=== PATIENT | female | born 1965 | race Caucasian/White ===

== ENCOUNTER 2017-06-11 19:35 | Emergency (ER) | payer MEDICAID ==
--- NOTE | 2017-06-11 21:47 | C.PDOC ---
History Of Present Illness Patient is a 52 y/o female who presents to the ED with complaints of a headache and right-sided facial pain for the last few days. Patient also notes mild right ear discomfort that worsens with bending downward. Denies fever or chills. No other complaints at this time. Time Seen by Provider: 06/11/17 21:46 Chief Complaint (Nursing): Headache History Per: Patient History/Exam Limitations: no limitations Onset/Duration Of Symptoms: Days Current Symptoms Are (Timing): Still Present Recent travel outside of the [place]: No Additional History Per: Patient Past Medical History Reviewed: Historical Data, Nursing Documentation, Vital Signs Vital Signs: Last Vital Signs Temp 97.5 F L 06/12/17 00:59 Pulse 56 L 06/12/17 00:59 Resp 22 06/12/17 00:59 BP 106/69 06/12/17 00:59 Pulse Ox 98 06/12/17 00:59 - Medical History PMH: No Chronic Diseases Surgical History: No Surg Hx Family History: States: Unknown Family Hx - Social History Hx Alcohol Use: No Hx Substance Use: No - Immunization History Hx Influenza Vaccination: No Hx Pneumococcal Vaccination: No Review Of Systems Constitutional: Negative for: Fever, Chills ENT: Positive for: Ear Pain (right ear discomfort, 4/10) Cardiovascular: Negative for: Chest Pain Respiratory: Negative for: Shortness of Breath Gastrointestinal: Negative for: Nausea, Vomiting Neurological: Positive for: Headache, Other Physical Exam - Physical Exam Appears: Well, Non-toxic Skin: Warm, Dry Head: Normacephalic, Tenderness (right maxillary sinus tenderness on palpation) Eye(s): bilateral: Normal Inspection, PERRL, EOMI Ear(s): Bilateral: Normal Nose: Normal Oral Mucosa: Moist Neck: Supple Chest: Symmetrical Cardiovascular: No Murmur Respiratory: No Rales, No Rhonchi, No Wheezing Neurological/Psych: Oriented x3, Normal Speech, Normal Cognition, Other (no focal defecits) Gait: Steady ED Course And Treatment O2 Sat by Pulse Oximetry: 99 Pulse Ox Interpretation: Normal Progress Note: Oribital/Facial CT and UA ordered. Reevaluation Time: 02:30 Reassessment Condition: Improved Disposition Counseled Patient/Family Regarding: Studies Performed, Diagnosis, Need For Followup, Rx Given - Disposition Referrals: [facility] [Outside] [facility] [Outside] Disposition: HOME/ ROUTINE Disposition Time: 21:47 Condition: FAIR Prescriptions: Naproxen [Naprosyn] 1 tab PO BID PRN #15 tab PRN Reason: Pain Sulfamethoxazole/Trimethoprim [Bactrim DS 800 mg-160 mg] 1 tab PO BID #14 tab Instructions: Sinusitis (ED) Forms: dotloop (Italian) Print Language: URUGUAYAN - Clinical Impression Clinical Impression: Sinusitis - Scribe Statement The provider has reviewed the documentation as recorded by the Scribe Angela Cherry All medical record entries made by the Kishoreibeimly were at my direction and personally dictated by me. I have reviewed the chart and agree that the record accurately reflects my personal performance of the history, physical exam, medical decision making, and the department course for this patient. I have also personally directed, reviewed, and agree with the discharge instructions and disposition.
[2017-06-11 22:36] LABS: RBC URINE 1 /hpf (0-3); URINE BILIRUBIN NEGATIVE (NEGATIVE); URINE BLOOD 2+ (NEGATIVE); URINE COLOR Straw (YELLOW); URINE GLUCOSE (UA) NORMAL (Normal); URINE KETONE NEGATIVE (NEGATIVE); URINE LEUKOCYTE ESTERASE NEG Leu/uL (Negative); URINE PROTEIN NEGATIVE (NEGATIVE); URINE UROBILINOGEN NORMAL mg/dL (0.2-1.0); WBC URINE < 1 /hpf (0-5)
[2017-06-12] MEDS ORDERED: Tmp-Smz 800 mg-160 mg DS Tab PO STA (00:08)
[2017-06-12] MEDS ORDERED: Tmp-Smz 800 mg-160 mg DS Tab ONE (00:23)
--- NOTE | 2017-06-12 00:50 | CT ---
EXAM: CT Orbits Without Intravenous Contrast EXAM DATE/TIME: 06/11/2017 10:04 PM CLINICAL HISTORY: 52 years old, female; Pain; Face pain and maxilla pain; Additional info: R maxillary pain TECHNIQUE: Axial computed tomography images of the orbits without intravenous contrast. All CT scans at this facility use one or more dose reduction techniques, viz.: automated exposure control; ma/kV adjustment per patient size (including targeted exams where dose is matched to indication; i.e. head); or iterative reconstruction technique. Coronal and sagittal reformatted images were created and reviewed. COMPARISON: No relevant prior studies available. FINDINGS: On the inferior most images (images 1 through 7), there is a cluster of small air foci along the right esophageal wall that are not clearly intraluminal. Evaluation is incomplete and suboptimal on this exam. If clinically indicated, CT chest may be helpful for further evaluation. There are no teeth identified within the left mandible. There are 3 teeth identified within the right mandible all of which appear to be abnormally angulated. There are no maxillary teeth present. There is symmetric fluid and air density in the expected location of the maxillary teeth. Trace mucosal thickening of the maxillary sinuses. Small amount of fluid / stranding along the anterior aspect of the mandibular base of uncertain etiology. This may be chronic versus representing mild acute edema from either infection or trauma. Clinical correlation recommended. The airway is patent. A normal epiglottis is identified. IMPRESSION: Complete paucity of maxillary teeth and left mandibular teeth. Fluid and air are present in the expected location of the absent teeth. This may be chronic as there is no stranding in the surrounding fat to suggest infectious/inflammatory process. Paucity of left mandibular teeth with abnormal angulation of the right mandibular teeth. Question small amount of edema anterior to the mandibular base as discussed above. Air foci along the right esophageal wall upper chest not definitely intraluminal but could be better evaluated with chest CT if indicated.
--- NOTE | 2017-06-12 02:33 | CT ---
EXAM: CT Chest Without Intravenous Contrast EXAM DATE/TIME: 06/12/2017 1:02 AM CLINICAL HISTORY: 52 years old, female; Pain; Chest pain; Additional info: Possible extraluminal esophaeal air TECHNIQUE: Axial computed tomography images of the chest without intravenous contrast. All CT scans at this facility use one or more dose reduction techniques, viz.: automated exposure control; ma/kV adjustment per patient size (including targeted exams where dose is matched to indication; i.e. head); or iterative reconstruction technique. Coronal and sagittal reformatted images were created and reviewed. COMPARISON: No relevant prior studies available. FINDINGS: On series 4, images 15 through 22, there is a collection of tiny extraluminal air foci along the right esophageal wall and posterior to the trachea. While esophageal or tracheal injury would be possible, there is no stranding or fluid in the surrounding fat, at least some of which could be expected with an acute perforation. Conceivably, this could represent a complex diverticuli although no direct connection to the esophageal lumen is identified. There is no direct connection to the tracheal lumen identified. Infectious etiology would also be within the differential diagnosis however there is no stranding in surrounding fat making this unlikely. Lastly, recommend correlation with regards to any recent procedures which could result in iatrogenic introduction of air. Prior studies would be helpful if they exist to establish the acuity/chronicity. No aortic aneurysm. No pleural or pericardial effussions. There are small faint bibasilar groundglass opacities that are a nonspecific finding however could be indicative of developing infectious/inflammatory process or developing edema. Gallstones are present. The visualized portions of the liver, spleen, pancreas are grossly normal. IMPRESSION: Small collection of air foci to the right of the esophageal lumen and posterior to the trachea in the upper chest as discussed in detail above. Nonspecific bibasilar groundglass opacities. Gallstones.
[2017-06-12 02:49] VITALS: BP 100/60; PULSE 50; RESP 18; TEMP 97.7; O2SAT 100
== END 2017-06-12 03:02 | disposition home or self-care (01) ==
LOC: C.ER 19:35
DX: J32.9 Chronic sinusitis, unspecified (principal)